=== PATIENT | male | born 1990 | race Caucasian/White ===

== ENCOUNTER 2020-08-04 15:07 | Outpatient (CLI) | payer BC, SELFPAY ==
--- NOTE | ~2020-08-04 | CT_ITS ---
EXAMINATION: CT abdomen pelvis wo/w con DATE: 08/04/2020 16:21 INDICATION: Gross hematuria TECHNIQUE: Computed tomography (CT) of the abdomen and pelvis was performed without and subsequently with 130 cc Omnipaque 350 intravenous contrast. Automated exposure control and iterative reconstructi on technique were employed. Exam dose: 857.88 mGy-cm total exam DLP. COMPARISON: None. FINDINGS: The lung bases are clear. Normal heart size. No pericardial or pleural effusion. The noncontrast examination reveals no evidence of urinary tract calculus or hydroureteronephrosis. The liver, gallbladder, bile ducts, spleen, pancreas, pancreatic duct and adrenal glands appear corey l. No renal mass lesion or scarring. No filling defect of the renal collecting systems, ureters or urina ry bladder. There is diffuse thickening of the urinary bladder wall. Prostate gland and seminal vesicles are unre markable. Normal caliber of the abdominal aorta. There are shotty nonenlarged aortocaval and periaortic lymph n odes. Normal appendix. No bowel obstruction, bowel wall thickening, pneumatosis or intraperitoneal free air . Included skeletal structures are unremarkable. IMPRESSION: Nonspecific diffuse thickening of the urinary bladder wall No urinary tract calculus or hydroureteronephrosis or urinary tract mass lesion is noted Reviewed, dictated and finalized at [facility]. Reviewed, dictated and finalized at [facility]. [employer] [employer]
== END 2020-08-04 15:08 | disposition home or self-care (01) ==
LOC: ANHIMG 15:11
DX: R31.0 Gross hematuria (principal)
CPT/HCPCS: 74178; Q9967